=== PATIENT | female | born 1990 | race American Indian/Alaskan Native ===

== ENCOUNTER 2017-05-14 18:17 | Outpatient (CLI) | payer MEDICAID ==
[2017-05-14 18:56] VITALS: BP 108/62
== END 2017-05-14 21:27 | disposition home or self-care (01) ==
LOC: TRG 18:17
PROVIDERS: ATTEND Obstetrics & Gynecology
DX: O47.03 False labor before 37 completed weeks of gestation, third trimester (principal); Z3A.31 31 weeks gestation of pregnancy

== ENCOUNTER 2017-07-20 20:16 | Inpatient (IN) | payer MEDICAID ==
--- NOTE | 2017-07-20 21:00 | History and Physical Report ---
History of Present Illness Date of examination: 07/20/17 Date of admission: 07/20/17 20:16 Chief complaint: here for IOL History of present illness: EDC Calculations LMP: 07/11/2017 EDC Confirmation: 07/11/2017 Gestational Age: 14 5/7 weeks Past History : 3 Term Births: 1 Living Children: 1 Para: 1 Aborta: 1 Elect. Ab: 1 # 1 Delivery date: 2009 Delivery type: EAB # 2 Delivery date: 08/11/2015 Weeks Gestation: 39 Delivery type: Vaginal Anesthesia type: none Delivery location: [facility] Infant Sex: female weight: 7.44 Comments: meconium, precipitous Past Medical History: Reviewed history from 02/25/2010 and no changes required: Negative Past Medical History Past Surgical History: Reviewed history from 01/13/2011 and no changes required: negative Past Medical History Anesthesia Complications: negative Anemia: negative Autoimmune Disorder: negative Bleeding Disorder: negative Blood Transfusions: negative Breast Disease: negative Diabetes: negative Heart Disease: negative Hypertension: negative Hepatitis/Liver Disease: negative Kidney Disease/UTI: negative Neurologic/Epilepsy/Migraines: negative Phlebitis/Varicosities: negative Psychiatric: negative Pulmonary Disease/Asthma: negative Thyroid Disease: negative Hospitalizations: negative 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 Patient has been counseled to quit. Denies ETOH or Drug use this Infection History Hx of STD: none HIV Risk Eval: no Hepatitis B Risk Eval: low risk Personal hx. of genital herpes: yes Partner hx. of genital herpes: no Rash, Viral, or Febrile illness since last LMP? no Varicella/Chicken Pox Status: Immunized TB Risk: no Genetic History Congenital Heart Defect: Mom: no Dad: no Agatha Disease: Mom: no Dad: no Thalassemia Mom: no Dad: no Neural Tube Defect Mom: no Dad: no Down's Syndrome Mom: no Dad: no James-Sachs Mom: no Dad: no Sickle Cell Disease/Trait Mom: no Dad: no Hemophilia Mom: no Dad: no Muscular Dystrophy Mom: no Dad: no Cystic Fibrosis Mom: no Dad: no German Chorea Mom: no Dad: no Mental Retardation Mom: no Dad: no Fragile X Mom: no Dad: no Other Genetic/Chromosomal Disorder Mom: no Dad: no Child w/other defect Mom: no Dad: no Enviromental Exposures Xray Exposure: no Medication, drug, or alcohol use since LMP: no Chemical/Other Exposure: no Exposure to Cat Liter: no Hx of Parvovirus (Fifth Disease): no Occupational Exposure to Children: none Past History Past Medical History: no pertinent history Past Surgical History: no surgical history Social history: no significant social history, single - Obstetrical History Expected Date of Delivery: 07/11/17 Actual Gestation: 41 Week(s) 2 Day(s) : 3 Para: 1 Induced : 1 Number of Living Children: 1 Medications and Allergies Allergies Allergy/AdvReac Type Severity Reaction Status Date / Time No Known Allergies Allergy Unverified 08/11/15 09:52 Home Medications Medication Instructions Recorded Confirmed Last Taken Type No Known Home Medications [No 08/11/15 08/11/15 Unknown History Reported Home Medications] Review of Systems All systems: negative - Physical Exam Cardiovascular: Normal S1, Normal S2, No murmurs Lungs: Positive: Clear to auscultation, Normal air movement Abdomen: Positive: normal appearance, soft. Negative: distention, tenderness, guarding Genitourinary (Female): Positive: normal external genitalia, normal perenium Vulva: both: normal Extremities: Positive: normal. Negative: tenderness, edema Deep Tendon Reflex Grade: Normal +2 - Obstetrical FHR: auscultation normal Cervical Dilatation: 4 Cervical Effacement Percentage: 60 station: -1 Results All other labs normal. Assessment and Plan - Patient Problems (1) 41 weeks gestation of Current Visit: Yes Status: Acute Plan to address problem: -pt here for IOL already in latent labor -will proceed with pitocin at this time -GBS negative -anticipate
[2017-07-20] MEDS ORDERED: BRETHINE IVP PRN (21:08)
[2017-07-20] MEDS ORDERED: MINERAL OIL PO PRN (21:08)
[2017-07-20] MEDS ORDERED: ZOFRAN IV PRN (21:08)
[2017-07-20] MEDS ORDERED: SUBLIMAZE IV PRN (21:08)
[2017-07-20] MEDS ORDERED: BRETHINE SUB-Q PRN (21:08)
[2017-07-20] MEDS ORDERED: XYLOCAINE 2% INFILTRATI ONE (21:08)
[2017-07-20] MEDS ORDERED: ePHEDrine SULFATE IV PRN (21:08)
[2017-07-20] MEDS ORDERED: LACTATED RINGERS 1,000 ML IV SCH (22:00)
[2017-07-20] MEDS ORDERED: PITOCin/NS 20 UNIT/1000ML DRIP 20 UNITS/1,000 ML BAG IV SCH (22:00)
[2017-07-20] MEDS ORDERED: PITOCin/NS 30 UNIT/500ML 30 UNITS/500 ML BAG IV SCH ×2 (22:00)
[2017-07-20 22:04] LABS: Hematocrit 33.3 % (30.3-42.9); Hemoglobin 11.3 gm/dl (10.1-14.3); Mean Corpuscular HGB Conc 34 % (30-34); Mean Corpuscular Hemoglobin 29 pg (28-32); Mean Corpuscular Volume 86 fl (79-97); Platelet Count 237 K/mm3 (140-440); Red Blood Count 3.86 M/mm3 (3.65-5.03); Red Cell Distribution Width 15.1 % (13.2-15.2)
[2017-07-20] MEDS ORDERED: ADRENALIN ONE (23:56)
[2017-07-20] MEDS ORDERED: ePHEDrine SULFATE ONE (23:57)
[2017-07-21] MEDS ORDERED: XYLOCAINE 2% INFILTRATI ONE (00:42)
--- NOTE | 2017-07-21 01:23 | Procedure Note ---
OB Delivery Note - Delivery Date of Delivery: 07/21/17 Surgeon: MAHI REID Estimated blood loss: other (350ml) - Vaginal Delivery presentation: vertex Delivery position: OP Intrapartum events: none Delivery induction: none Delivery augmentation: pitocin Delivery monitor: external FHT, external uterine Route of delivery: Delivery placenta: spontaneous Delivery cord: 3 umbilical vessels Episiotomy: midline (no extensions) Delivery laceration: none Delivery repair: vicryl (3-0) Anesthesia: local Delivery comments: Delivery as above. Ant shoulder and rest of infant delivered w/o difficulty over MLE. placed on maternal abdomen. Terminal meconium was noted after delivery. Cord clamped x 2 and cut. Cord blood collected. Placenta delivered spontaneously intact. MLE repaired in usual fashion. No other lacerations were noted. EBL 350ml. Pt and infant stable in LDR. - Infant A at 1 minute: 8 at 5 minutes: 9 Infant Gender: Female (7lbs 7oz)
[2017-07-21] MEDS ORDERED: MILK OF MAGNESIA PO PRN (01:24)
[2017-07-21] MEDS ORDERED: LANSINOH TP PRN (01:24)
[2017-07-21] MEDS ORDERED: TYLENOL PO PRN (01:24)
[2017-07-21] MEDS ORDERED: BENADRYL PO PRN (01:24)
[2017-07-21] MEDS ORDERED: DULCOLAX PR PRN (01:24)
[2017-07-21] MEDS ORDERED: TUCKS PAD TP PRN (01:24)
[2017-07-21] MEDS ORDERED: NORCO 5/325 PO PRN (01:30)
[2017-07-21] MEDS: MOTRIN PO SCH ×5 (01:55→23:06)
[2017-07-21] MEDS ORDERED: SODIUM CHLORIDE FLUSH SYRINGE 10 ML IV PRN (02:00)
[2017-07-21 13:51] LABS: Hematocrit 31.5 % (30.3-42.9); Hemoglobin 10.5 gm/dl (10.1-14.3)
[2017-07-21] MEDS ORDERED: BOOSTRIX IM ONE (22:00)
[2017-07-22] MEDS: MOTRIN PO SCH ×2 (05:40→13:19)
--- NOTE | 2017-07-22 06:42 | Discharge Summary ---
Providers - Providers Date of Admission: 07/20/17 20:16 Date of discharge: 07/22/17 (pt desires d/c ) Attending physician: MAHI REID Primary care physician: MAHI REID Hospitalization Reason for admission: active labor Delivery: Episiotomy: none Laceration: none Other procedures: none complications: none Discharge diagnosis: IUP at term delivered [place] baby: female Hospital course: uncomplicated vaginal delivery Pt w/o complaint VSS FF below umb Lochia small Perineum intact H&H 09/29 Pt is asymptomatic Doing well s/p vag delivery P: d/c today with instructions RTO 4-6 weeks PP care. Condition at discharge: Good Disposition: DC-01 TO HOME OR SELFCARE - Discharge Diagnoses (1) Normal delivery Status: Acute Comment: rto 4-6 weeks PP care Plan - Discharge Medications Prescriptions: Ibuprofen [Motrin 800 MG tab] 800 mg PO Q8HR PRN #30 tablet PRN Reason: Pain - Provider Discharge Summary Activity: routine, no sex for 6 weeks, no heavy lifting 4 weeks, no strenuous exercise Diet: routine Instructions: routine Additional instructions: [] Smoking cessation referral if applicable(refer to patient education folder for contact #) [] Refer to [facility] Booklet Call your doctor immediately for: * Fever > 100.5 * Heavy vaginal bleeding ( >1 pad per hour) * Severe persistent headache * Shortness of breath * Reddened, hot, painful area to leg or breast * Drainage or odor from incision. * Keep incision clean and dry at all times and follow doctor's instructions regarding bathing/showering - Follow up plan Follow up: MAHI REID MD [Primary Care Provider] - 6 Weeks (Congratulations! Please call [phone] to schedule your appointment in 4-6 weeks. Take medication as prescribed. Call with any concerns. )
[2017-07-22 10:06] VITALS: BP 119/66
== END 2017-07-22 15:00 | disposition home or self-care (01) | DRG 775 ==
LOC: LD 20:16 → OB 07-21 02:54
PROVIDERS: ADMIT Obstetrics & Gynecology; ATTEND Obstetrics & Gynecology
PROC: 3E0334Z Introduction of Serum, Toxoid and Vaccine into Peripheral Vein, Percutaneous Approach (ICD-10-PCS; 2017-07-20)
PROC: 10E0XZZ Delivery of Products of Conception, External Approach (ICD-10-PCS; principal; 2017-07-21)
PROC: 0W8NXZZ Division of Female Perineum, External Approach (ICD-10-PCS; 2017-07-21)
DX: O77.0 Labor and delivery complicated by meconium in amniotic fluid (principal); Z3A.41 41 weeks gestation of pregnancy; Z37.0 Single live birth
CPT/HCPCS: 36415; 85014; 85018; 85027; 85461; 86592; 86850; 86900; 86901; 90471; 90715; 99211; A6250; G0463; J0171; J2590; J2790; J3010; J7120

== ENCOUNTER 2022-01-24 05:55 | Emergency (ER) | payer MEDICAID ==
[2022-01-24 06:18] VITALS: BP 109/60
[2022-01-24] MEDS ORDERED: KETOROLAC 30 MG/1 ML INJ IM ONE (06:45)
--- NOTE | 2022-01-24 06:49 | Emergency Department Report ---
ED General Adult HPI - General Chief complaint: Extremity Injury, Lower Stated complaint: RIGHT KNEE PAIN /PINK EYE Time Seen by Provider: 01/24/22 06:35 Source: patient Mode of arrival: Ambulatory Limitations: No Limitations - History of Present Illness Initial comments: 31-year-old -Nepalese female presents to the emergency room complaining of 2 issues. First issue she has been having a 2-day history of right knee pain and swelling. Patient reports no trauma or known cause. She states she has never injured that knee as she can recall. Today she states that the left knee is starting to give pain. She has not taken any pain medicine to relieve her pain. She states that she has pinkeye and was prescribed gentamicin at the urgent care and it first started on her right eye and now is on both eyes. Patient denies any fever no history of gout no trauma. Onset/Timin -: days(s) Location: eyes, left, right, lower extremity Severity scale (0 -10): 4 Quality: aching Consistency: constant Improves with: none Worsens with: none Associated Symptoms: denies other symptoms. denies: nausea/vomiting Treatments Prior to Arrival: none - Related Data Home Medications Medication Instructions Recorded Confirmed Last Taken Valacyclovir HCl [valACYclovir] 1 tab PO DAILY 07/20/17 07/20/17 07/19/17 10:00 Previous Rx's Medication Instructions Recorded Last Taken Type Ibuprofen [Motrin 800 MG tab] 800 mg PO Q8HR PRN #30 tablet 01/24/22 Unknown Rx Allergies Allergy/AdvReac Type Severity Reaction Status Date / Time No Known Allergies Allergy Unverified 08/11/15 09:52 ED Review of Systems ROS: Stated complaint: RIGHT KNEE PAIN /PINK EYE Other details as noted in HPI Comment: All other systems reviewed and negative ED Past Medical Hx - Past Medical History Previous Medical History?: No Hx Hypertension: No Hx Congestive Heart Failure: No Hx Diabetes: No Hx Deep Vein Thrombosis: No Hx Renal Disease: No Hx Sickle Cell Disease: No Hx Seizures: No Hx Asthma: No Hx COPD: No Hx HIV: No - Surgical History Past Surgical History?: No - Social History Smoking Status: Never Smoker - Medications Home Medications: Home Medications Medication Instructions Recorded Confirmed Last Taken Type Valacyclovir HCl [valACYclovir] 1 tab PO DAILY 07/20/17 07/20/17 07/19/17 10:00 History Ibuprofen [Motrin 800 MG tab] 800 mg PO Q8HR PRN #30 tablet 01/24/22 Unknown Rx ED Physical Exam - General Limitations: No Limitations General appearance: alert, in no apparent distress - Head Head exam: Present: atraumatic, normocephalic - Eye Eye exam: Present: EOMI, conjunctival injection. Absent: periorbital swelling - ENT ENT exam: Present: normal external ear exam - Neck Neck exam: Present: normal inspection, full ROM - Respiratory Respiratory exam: Absent: respiratory distress, accessory muscle use - Cardiovascular Cardiovascular Exam: Present: regular rate - Expanded Lower Extremity Exam Right Hip exam: Present: normal inspection, full ROM Upper Leg exam: Present: normal inspection, full ROM Knee exam: Present: full ROM, tenderness, swelling (Mild) Lower Leg exam: Present: normal inspection, full ROM Ankle exam: Present: normal inspection, full ROM Foot/Toe exam: Present: normal inspection Neuro vascular tendon exam: Present: no vascular compromise - Back Exam Back exam: Present: normal inspection, full ROM - Neurological Exam Neurological exam: Present: alert, oriented X3 - Psychiatric Psychiatric exam: Present: normal affect, normal mood - Skin Skin exam: Present: warm, dry, intact, normal color. Absent: rash ED Course Vital Signs 01/24/22 06:07 Temperature 97.7 F Pulse Rate 94 H Respiratory 17 Rate Blood Pressure 109/60 [Right] O2 Sat by Pulse 100 Oximetry ED Medical Decision Making - Medical Decision Making 31-year-old -Nepalese female presents to the emergency room complaining of 2 issues. First issue she has been having a 2-day history of right knee pain and swelling. Patient reports no trauma or known cause. She states she has never injured that knee as she can recall. Today she states that the left knee is starting to give pain. She has not taken any pain medicine to relieve her pain. She states that she has pinkeye and was prescribed gentamicin at the urgent care and it first started on her right eye and now is on both eyes. Patient denies any fever no history of gout no trauma. Discussed with patient I cannot tap her knee or remove fluid. Discussed with patient I can offer her Toradol injection for pain and referral to orthopedics. Discussed with patient to continue with taking the gentamicin for her conjunctivitis and reviewed over how to take the medication and not recontaminate. Critical care attestation.: If time is entered above; I have spent that time in minutes in the direct care of this critically ill patient, excluding procedure time. ED Disposition Clinical Impression: Conjunctivitis, acute, bilateral, Bilateral anterior knee pain Disposition: 01 HOME / SELF CARE / HOMELESS Is pt being admited?: No Does the pt Need Aspirin: No Condition: Stable Instructions: Acute Knee Pain, Adult Additional Instructions: Recommend taking the Motrin as prescribed. Continue with the gentamicin eyedrops. Follow-up with orthopedics and her primary care provider. Prescriptions: Ibuprofen [Motrin 800 MG tab] 800 mg PO Q8HR PRN #30 tablet PRN Reason: Pain Referrals: [facility] [Provider Group] - 3-5 Days [facility] [Provider Group] - 3-5 Days Forms: Work/School Release Form(ED) Time of Disposition: 06:54
== END 2022-01-24 07:49 | disposition home or self-care (01) ==
LOC: ED 05:55
DX: H10.33 Unspecified acute conjunctivitis, bilateral (principal); M25.561 Pain in right knee; M25.562 Pain in left knee; Z79.899 Other long term (current) drug therapy
CPT/HCPCS: 96372; 99282; J1885